=== PATIENT | female | born 1960 | race Caucasian/White ===

== ENCOUNTER 2021-12-10 23:19 | Inpatient (IN) ==
[2021-12-11 00:20] LABS: Basophils # 0.1 K/mcL (0.0-0.2); Basophils % 0.7 %; Eosinophils # 0.1 K/mcL (0.0-0.6); Eosinophils % 1.2 %; Hematocrit 42.1 % (35.3-44.9); Hemoglobin 13.7 g/dL (11.5-15.4); Immature Granulocytes % 0.7 % (0-4); Lymphocytes # 2.9 K/mcL (0.6-4.6); Lymphocytes % 27.6 %; Mean Corpuscular HGB Conc 32.5 g/dL (31.6-35.5); Mean Corpuscular Hemoglobin 29.8 pg (28.0-33.3); Mean Corpuscular Volume 91.5 fL (83.0-100.0); Mean Platelet Volume 9.9 fL (9.4-12.4); Monocytes # 0.7 K/mcL (0.0-1.3); Monocytes % 6.4 %; Neutrophils # 6.8 K/mcL (1.6-8.9); Platelet Count 243 K/mcL (140-400); Red Cell Distribution Width 13.7 % (11.5-14.5); Segmented Neutrophils % 63.4 %; White Blood Count 10.7 K/mcL (4.3-11.1)
[2021-12-11 00:35] LABS: Estimated Average Glucose 126 mg/dl
[2021-12-11 00:43] LABS: Acetaminophen < 10 mcg/mL (10-20); Alanine Aminotransferase 20 Units/L (7-52); Albumin 3.8 g/dL (3.5-5.7); Albumin/Globulin Ratio 1.3 (1.1-2.2); Alkaline Phosphatase 89 Units/L (34-104); Aspartate Amino Transferase 15 Units/L (13-39); BUN/Creatinine Ratio 18 (6-26); Bilirubin,Indirect 0.3 mg/dL (0.0-1.0); Bilirubin,Total 0.3 mg/dL (0.3-1.0); Blood Urea Nitrogen 17 mg/dL (8-23); Calcium 9.4 mg/dL (8.6-10.3); Carbon Dioxide 22 mEq/L (23-29); Chloride 109 mEq/L (98-107); Chol/HDL Ratio 2.8 (0-4.9); Cholesterol 140 mg/dL (< 200); Ethanol < 10 mg/dL (Less than 10); Globulin 2.9 g/dL (2.4-3.5); Glucose 144 mg/dL (70-105); HDL Cholesterol 50 mg/dL (40-59); LDL Cholesterol,Calculated 56 mg/dL (< 100); Osmolality,Calculated 292 (280-300); Salicylate < 2.5 mg/dL (15.0-30.0); Sodium 139 mEq/L (136-145); Total Protein 6.7 g/dL (6.4-8.9); Triglycerides 169 mg/dL (< 150); eGFR For African Americans > 60 (> 60); eGFR For Non-African Americans > 60 (> 60)
[2021-12-11 00:56] LABS: Thyroid Stimulating Hormone 1.142 mcIU/mL (0.340-5.600)
[2021-12-11 01:50] LABS: Amphetamine Screen,Urine Negative ng/mL (Cutoff=1000); Barbiturate Screen,Urine Negative ng/mL (Cutoff=200); Benzodiazepines Screen,Urine Negative ng/mL (Cutoff=200); Cannabinoid Screen,Urine Negative ng/mL (Cutoff = 50); Cocaine Screen,Urine Negative ng/mL (Cutoff= 300); Opiate Screen,Urine Negative ng/mL (Cutoff=300); Phencyclidine Screen,Urine Negative ng/mL (Cutoff=25)
[2021-12-11 02:12] LABS: Bilirubin,Urine Negative (Negative); Blood,Urine Negative (Negative); Clarity,Urine Clear (Clear); Color,Urine Light-Yellow (Yellow); Glucose,Urine (UA) Normal (Normal); Ketones,Urine Negative (Negative); Leukocyte Esterase,Urine Trace (Negative); Mucus,Urine Few per lpf (None-Few); Nitrite,Urine Negative (Negative); Protein,Urine Negative (Neg-Trace); RBC,Urine 0-3 per hpf (0-3); Squamous Epithelial Cell,Urine Few per hpf (None-Few); Urobilinogen,Urine Normal (Normal)
[2021-12-11 05:14] LABS: Influenza A PCR Negative (Negative); Influenza B PCR Negative (Negative); Resp. Syncytial Virus PCR Negative (Negative)
[2021-12-11 05:15] LABS: SARS-CoV-2 by PCR (In House) Negative (Negative)
[2021-12-11] MEDS ORDERED: QUEtiapine Fumarate 25 MG TABLET PO PRN (05:28)
[2021-12-11] MEDS ORDERED: Haloperidol Lactate 5 MG/ML VIAL IM PRN (06:00)
[2021-12-11] MEDS ORDERED: *HR* LORazepam 2 MG/ML VIAL IM PRN (06:00)
[2021-12-11] MEDS ORDERED: haloperidoL 5 MG TABLET PO PRN (06:00)
[2021-12-11] MEDS ORDERED: *HR* LORazepam 1 MG TABLET PO PRN (06:00)
[2021-12-11] MEDS: clonazePAM 1 MG TABLET PO SCH ×3 (09:02→20:42)
[2021-12-11] MEDS: lamoTRIgine 100 MG TABLET PO SCH ×2 (09:02→20:42)
[2021-12-11] MEDS: Topiramate 100 MG TABLET PO SCH ×2 (09:02→20:43)
[2021-12-11] MEDS: Venlafaxine XR (24 HR) 150 MG CAP.ER.24H PO SCH (09:02)
[2021-12-11] MEDS: Ibuprofen 400 MG TABLET PO PRN (11:36)
[2021-12-11] MEDS: Venlafaxine XR (24 HR) 37.5 MG CAP.ER.24H PO SCH (11:37)
[2021-12-11] MEDS ORDERED: MOM Conc 10 ML UD.LIQ PO PRN (12:31)
[2021-12-11] MEDS: Sucralfate 1 GM TABLET PO SCH (16:17)
[2021-12-11] MEDS: QUEtiapine Fumarate 100 MG TABLET PO SCH (20:43)
[2021-12-11] MEDS: hydrOXYzine pamoate 25 MG CAPSULE PO PRN (20:43)
[2021-12-12] MEDS: Ibuprofen 400 MG TABLET PO PRN ×2 (06:02→13:19)
[2021-12-12] MEDS: Venlafaxine XR (24 HR) 37.5 MG CAP.ER.24H PO SCH (08:34)
[2021-12-12] MEDS: Sucralfate 1 GM TABLET PO SCH ×2 (08:34→15:59)
[2021-12-12] MEDS: lamoTRIgine 100 MG TABLET PO SCH ×2 (08:34→20:46)
[2021-12-12] MEDS: Venlafaxine XR (24 HR) 150 MG CAP.ER.24H PO SCH (08:35)
[2021-12-12] MEDS: clonazePAM 1 MG TABLET PO SCH ×3 (08:35→20:46)
[2021-12-12] MEDS: Topiramate 100 MG TABLET PO SCH ×2 (08:35→20:47)
[2021-12-12] MEDS ORDERED: Venlafaxine XR (24 HR) 37.5 MG CAP.ER.24H PO ONE (11:00)
[2021-12-12] MEDS: Mag Hydrox/Al Hydrox/Simeth 30 ML UDC PO PRN (15:59)
[2021-12-12] MEDS: QUEtiapine Fumarate 100 MG TABLET PO SCH (20:47)
[2021-12-12] MEDS: hydrOXYzine pamoate 25 MG CAPSULE PO PRN (21:55)
[2021-12-13] MEDS: lamoTRIgine 100 MG TABLET PO SCH ×2 (09:18→21:04)
[2021-12-13] MEDS: Sucralfate 1 GM TABLET PO SCH ×2 (09:19→16:07)
[2021-12-13] MEDS: Venlafaxine XR (24 HR) 150 MG CAP.ER.24H PO SCH (09:19)
[2021-12-13] MEDS: Venlafaxine XR (24 HR) 75 MG CAP.ER.24H PO SCH (09:19)
[2021-12-13] MEDS: Topiramate 100 MG TABLET PO SCH ×2 (09:20→21:04)
[2021-12-13] MEDS: clonazePAM 1 MG TABLET PO SCH ×3 (09:20→21:04)
[2021-12-13] MEDS: Mag Hydrox/Al Hydrox/Simeth 30 ML UDC PO PRN (11:34)
[2021-12-13] MEDS: QUEtiapine Fumarate 100 MG TABLET PO SCH (21:04)
[2021-12-13] MEDS: hydrOXYzine pamoate 25 MG CAPSULE PO PRN (21:06)
[2021-12-14] MEDS: Sucralfate 1 GM TABLET PO SCH (06:31)
[2021-12-14] MEDS: lamoTRIgine 100 MG TABLET PO SCH (08:47)
[2021-12-14] MEDS: Venlafaxine XR (24 HR) 75 MG CAP.ER.24H PO SCH (08:48)
[2021-12-14] MEDS: Venlafaxine XR (24 HR) 150 MG CAP.ER.24H PO SCH (08:48)
[2021-12-14] MEDS: Topiramate 100 MG TABLET PO SCH (08:48)
[2021-12-14] MEDS: clonazePAM 1 MG TABLET PO SCH (08:51)
[2021-12-14] MEDS: hydrOXYzine pamoate 25 MG CAPSULE PO PRN (08:52)
[2021-12-14 09:02] VITALS: BP 116/84; PULSE 85; TEMP 97.8; O2SAT 99
[2021-12-14] MEDS: Mag Hydrox/Al Hydrox/Simeth 30 ML UDC PO PRN (11:38)
== END 2021-12-14 11:50 | disposition home or self-care (01) | DRG 885 ==
LOC: EMEROOARM 23:19 → 1ANU 12-11 05:45
PROVIDERS: ADMIT Psychiatry & Neurology Psychiatry; ATTEND Psychiatry & Neurology Psychiatry